=== PATIENT | male | born 1980 | race Caucasian/White ===

== ENCOUNTER 2018-09-04 15:07 | Inpatient (IN) | payer BC, OTHER ==
[~2018-09-04] VITALS: Ht 170.2 cm; Wt 92.7 kg
[2018-09-04] MEDS ORDERED: AMLO5TAB4 PO (17:23)
--- NOTE | 2018-09-04 18:06 | ERD ---
ER Documentation Chief Complaint Chief Complaint Sent by PCP for "liver condition", jaundiced, AP, guzman stool X 4 days HPI 38-year-old male referred by his primary care doctor for evaluation of jaundice. Patient was in his usual state of health until the last few months at which time he had a postprandial epigastric colicky abdominal pain. This usually came and went and did not bother him until the last 4 days which time he became jaundiced and began having guzman stool over the last 4 days as well as brownish urine. He denies fevers or chills. He has occasional nausea but no significant discomfort at this current time. He reports no weight loss. ROS All systems reviewed and are negative except as per history of present illness. Medications Home Meds Reported Medications Amlodipine Besylate* (Norvasc*) 5 Mg Tablet, 5 MG PO DAILY, TAB 09/04/18 Allergies Allergies: Coded Allergies: No Known Allergy (Unverified , 09/04/18) PMhx/Soc Hx Alcohol Use: Yes Hx Substance Use: No Hx Tobacco Use: No Smoking Status: Never smoker FmHx Noncontributory for chief complaint Physical Exam Vitals Vital Signs Date Temp Pulse Resp B/P (MAP) Pulse Ox O2 O2 Flow FiO2 Time Delivery Rate 09/04/18 97.8 97 18 176/108 97 15:16 (130) Physical Exam GENERAL: The patient is well developed and appropriate for usual state of health in no apparent distress HEENT: Pupils equal, round, and reactive to light. EOMI. There is no scleral icterus. NECK: C-spine is soft and supple, there is no meningismus. There is no cervical lymphadenopathy. LUNGS: Clear to auscultation bilaterally. There are no rales, wheezes or rhonchi. HEART: Regular rate and rhythm, no murmurs, clicks, rubs or gallops. ABDOMEN: Soft, non-tender, non-distended. There are bowel sounds in all four quadrants. No rebound or guarding. No Arnold sign at this time, no palpable mass EXTREMITIES: There is no peripheral cyanosis or edema. No focal swelling or erythema. NEURO: The patient moves all four extremities with 5/5 strength. Cranial nerves II - XII are intact. Normal gait. Alert and oriented SKIN: There is no apparent rash or petechiae. HEME/LYMPHATIC: There is no evidence of excessive bruising or lymphedema. PSYCHIATRIC: The patient does not appear anxious or depressed. Result Diagram: 09/04/18 1705 09/04/18 1705 Results 24 hrs Laboratory Tests Test 09/04/18 17:05 White Blood Count 5.2 10^3/ul Red Blood Count 5.38 10^6/ul Hemoglobin 14.5 g/dl Hematocrit 44.9 % Mean Corpuscular Volume 83.5 fl Mean Corpuscular Hemoglobin 27.0 pg Mean Corpuscular Hemoglobin Concent 32.3 g/dl Red Cell Distribution Width 13.7 % Platelet Count 265 10^3/UL Mean Platelet Volume 9.6 fl Immature Granulocytes % 0.400 % Neutrophils % 59.5 % Lymphocytes % 26.7 % Monocytes % 9.7 % Eosinophils % 2.5 % Basophils % 1.2 % Nucleated Red Blood Cells % 0.0 /100WBC Immature Granulocytes # 0.020 10^3/ul Neutrophils # 3.1 10^3/ul Lymphocytes # 1.4 10^3/ul Monocytes # 0.5 10^3/ul Eosinophils # 0.1 10^3/ul Basophils # 0.1 10^3/ul Nucleated Red Blood Cells # 0.0 10^3/ul Prothrombin Time 12.9 Sec Prothrombin Time Ratio 1.0 INR International Normalized Ratio 0.96 Urine Color AR Urine Clarity CLEAR Urine pH 6.0 Urine Specific [place] 1.017 Urine Ketones NEGATIVE mg/dL Urine Nitrite NEGATIVE mg/dL Urine Bilirubin 2+ mg/dL Urine Urobilinogen 2+ mg/dL Urine Leukocyte Esterase NEGATIVE Eduar/ul Urine Microscopic RBC 0 /HPF Urine Microscopic WBC 1 /HPF Urine Hemoglobin 1+ mg/dL Urine Glucose NEGATIVE mg/dL Urine Total Protein NEGATIVE mg/dl Sodium Level 140 mmol/L Potassium Level 4.0 mmol/L Chloride Level 102 mmol/L Carbon Dioxide Level 28 mmol/L Anion Gap 10 Blood Urea Nitrogen 14 mg/dl Creatinine 1.03 mg/dl Est Glomerular Filtrat Rate mL/min > 60 mL/min Glucose Level 107 mg/dl Calcium Level 9.7 mg/dl Total Bilirubin 8.0 mg/dl Direct Bilirubin 4.20 mg/dl Indirect Bilirubin 3.8 mg/dl Aspartate Amino Transf (AST/SGOT) 231 IU/L Alanine Aminotransferase (ALT/SGPT) 464 IU/L Alkaline Phosphatase 305 IU/L Total Protein 8.9 g/dl Albumin 5.0 g/dl Globulin 3.90 g/dl Albumin/Globulin Ratio 1.28 Lipase 65 U/L Procedures/MDM Patient was taken to a room, seen and evaluated. Comfort measures were initiated. Diagnostic tests were ordered and reviewed. RADIOLOGY: Reviewed with the radiologist CONSULTATION: Hospitalist was notified for admission GI and general surgery consultation was requested REEVALUATION: 1800: Diagnostic tests were appreciated and discussed with the patient and he remained comfortable. MEDICAL DECISION MAKIN-year-old male presents the emergency department with intermittent epigastric abdominal pain and what appears to be biliary obstruction. Initial diagnostic tests demonstrate evidence of choledocholithi asis with no obvious cholangitis. Patient has a CT scan with IV contrast ordered to further evaluate the abdomen, but his gallstones seem to be the apparent cause of this issue. Patient will be admitted to the hospital for consideration of ERCP, cholecystectomy further testing and treatment as nec essary. Departure Diagnosis: Primary Impression: Choledocholithiasis Condition: MICHELLE Mo Sep 04, 2018 18:05
--- NOTE | 2018-09-04 19:10 | HP ---
Date/Time of Note Date/Time of Note DATE: 09/04/18 TIME: 19:01 Assessment/Plan VTE Prophylaxis Pharmacological prophylaxis: NA/contraindicated Pharm contraindication: low risk/ambulating Lines/Catheters IV Catheter Type (from Nrs): Saline Lock Assessment/Plan Hospital Course 1. Abdominal pain with jaundice Abdominal ultrasound shows no evidence of choledocholithiasis, cholelithiasis is noted Follow-up on MRCP Surgery and GI consultations obtained in the ER Check hepatitis panel, H[place]IGH, anti-smooth and antimitochondrial antibodies, CA-19-9 and AFP 2. Hypertension Continue home Norvasc Prophylaxis: Ambulation Result Diagram: 09/04/18 1705 09/04/18 1705 Results 24hrs Laboratory Tests Test 09/04/18 17:05 White Blood Count 5.2 Red Blood Count 5.38 Hemoglobin 14.5 Hematocrit 44.9 Mean Corpuscular Volume 83.5 Mean Corpuscular Hemoglobin 27.0 L Mean Corpuscular Hemoglobin Concent 32.3 Red Cell Distribution Width 13.7 Platelet Count 265 Mean Platelet Volume 9.6 Immature Granulocytes % 0.400 Neutrophils % 59.5 Lymphocytes % 26.7 Monocytes % 9.7 Eosinophils % 2.5 Basophils % 1.2 Nucleated Red Blood Cells % 0.0 Immature Granulocytes # 0.020 Neutrophils # 3.1 Lymphocytes # 1.4 Monocytes # 0.5 Eosinophils # 0.1 Basophils # 0.1 Nucleated Red Blood Cells # 0.0 Prothrombin Time 12.9 Prothrombin Time Ratio 1.0 INR International Normalized Ratio 0.96 Urine Color AR Urine Clarity CLEAR Urine pH 6.0 Urine Specific [place] 1.017 Urine Ketones NEGATIVE Urine Nitrite NEGATIVE Urine Bilirubin 2+ H Urine Urobilinogen 2+ H Urine Leukocyte Esterase NEGATIVE Urine Microscopic RBC 0 Urine Microscopic WBC 1 Urine Hemoglobin 1+ H Urine Glucose NEGATIVE Urine Total Protein NEGATIVE Sodium Level 140 Potassium Level 4.0 Chloride Level 102 Carbon Dioxide Level 28 Anion Gap 10 Blood Urea Nitrogen 14 Creatinine 1.03 Est Glomerular Filtrat Rate mL/min > 60 Glucose Level 107 Calcium Level 9.7 Total Bilirubin 8.0 H Direct Bilirubin 4.20 H Indirect Bilirubin 3.8 H Aspartate Amino Transf (AST/SGOT) 231 H Alanine Aminotransferase (ALT/SGPT) 464 H Alkaline Phosphatase 305 H Total Protein 8.9 H Albumin 5.0 H Globulin 3.90 H Albumin/Globulin Ratio 1.28 Lipase 65 HPI/ROS Admit Date/Time Admit Date/Time September 04, 2018 Hx of Present Illness Patient is a 38-year-old male with a history of hypertension and hemorrhoids, patient presents with 6 months of intermittent nausea and vomiting with worsening of his nausea and vomiting over the past several weeks in addition to midepigastric and left mid quadrant abdominal pain with jaundice and darkening of the urine and decreased coloration of the stool. Patient saw his PCP today who noticed his jaundice and scleral icterus and sent him to the ER. In the ER LFTs including bilirubin are elevated, abdominal ultrasound shows cholelithiasis with a normal CBD, CT abdomen showed Hepatic steatosis with a benign appearing inferior right hepatic lobe lesion most likely an hemangioma. Patient has no other complaints at this time. ROS Constitutional: no complaints, improved Eyes: no complaints ENT: no complaints Respiratory: no complaints Cardiovascular: no complaints Gastrointestinal: pain Genitourinary: no complaints Musculoskeletal: no complaints Skin: other (Jaundice) Neurologic: no complaints Endocrine: no complaints Lymphatic: no complaints Psychological: no complaints, nl mood/affect Immunologic: no complaints PMH/Family/Social Past Medical History Hypertension hemorrhoids Coded Allergies: No Known Allergy (Unverified , 09/04/18) Past Surgical History Surgery for hemorrhoids Family History Significant Family History: no pertinent family hx Social History Alcohol Use: occasionally Smoking Status: Former smoker Drug Use: none Exam/Review of Systems Vital Signs Vitals Vital Signs Date Temp Pulse Resp B/P (MAP) Pulse Ox O2 O2 Flow FiO2 Time Delivery Rate 09/04/18 97.8 97 18 176/108 97 15:16 (130) Exam Constitutional: alert, oriented Eyes: No nl sclera Respiratory: clear to auscultation Cardiovascular: regular rate and rhythm Gastrointestinal: soft, non-tender; No distended Musculoskeletal: nl extremities to inspection Skin: other (Jaundice) YONNY TRAORE Sep 04, 2018 19:10
[2018-09-04] MEDS ORDERED: DOCUSATE SODIUM 100 MG CAP PO PRN (19:30)
[2018-09-04] MEDS ORDERED: ONDANSETRON 4 MG INJ IV PRN (19:30)
[2018-09-04] MEDS ORDERED: morphine 2 MG INJ IV PRN (19:30)
[2018-09-04] MEDS ORDERED: ZOLPIDEM 5 MG TAB PO PRN (19:30)
[2018-09-04] MEDS ORDERED: HYDROCODONE/APAP (5/325) TAB PO PRN (19:30)
[2018-09-04] MEDS ORDERED: NACL 0.9% 3 ML SYG IV SCH (19:30)
[2018-09-04] MEDS ORDERED: ACETAMINOPHEN 325 MG TAB PO PRN (19:30)
[2018-09-04 21:00] VITALS: BP 142/82; PULSE 68; RESP 18
[2018-09-04 22:11] VITALS: Ht 170.2 cm; Wt 92.7 kg
[2018-09-05] VITALS (18 sets, daily range): BP systolic 130–174; BP diastolic 75–104; PULSE 64–92; RESP 11–99
--- NOTE | 2018-09-05 00:44 | CONS ---
Date/Time of Note Date/Time of Note DATE: 09/05/18 TIME: 00:44 Assessment/Plan Assessment/Plan Assessment/Plan Az with a 6-month history of intermittent abdominal pain, fatty food intolerance and 2-day history of increasing jaundice darkening of urine and lightening of stool. Findings on evaluation consistent with common bile duct obstruction either transient or acute with elevated LFTs bilirubin of 8 normal white blood cell count. There is also incidental finding of mass in which consistent with hemangioma in the liver but this does not appear to be involving or causing the above symptoms. Patient had MRCP though findings are results are not yet known. I discussed with the patient the natural history and evolution and findings consistent with likely common bile duct stone though there is no evidence of dilatation. If the MRCP is normal and LFTs improved we may assume that he has passed a stone which case he will simply require laparoscopic cholecystectomy. If there is any suggestion of common duct debris or stone then he will need to undergo ERCP by GI either in concert with laparoscopic cholecystectomy or prior to. Patient understands that we will keep him n.p.o. tonight and he understands and agrees with the plan course of treatment. Thank you Result Diagram: 09/04/18 1705 09/04/18 1705 Results 24hrs Laboratory Tests Test 09/04/18 17:05 09/04/18 17:07 White Blood Count 5.2 Red Blood Count 5.38 Hemoglobin 14.5 Hematocrit 44.9 Mean Corpuscular Volume 83.5 Mean Corpuscular Hemoglobin 27.0 L Mean Corpuscular Hemoglobin Concent 32.3 Red Cell Distribution Width 13.7 Platelet Count 265 Mean Platelet Volume 9.6 Immature Granulocytes % 0.400 Neutrophils % 59.5 Lymphocytes % 26.7 Monocytes % 9.7 Eosinophils % 2.5 Basophils % 1.2 Nucleated Red Blood Cells % 0.0 Immature Granulocytes # 0.020 Neutrophils # 3.1 Lymphocytes # 1.4 Monocytes # 0.5 Eosinophils # 0.1 Basophils # 0.1 Nucleated Red Blood Cells # 0.0 Prothrombin Time 12.9 Prothrombin Time Ratio 1.0 INR International Normalized Ratio 0.96 Urine Color AR Urine Clarity CLEAR Urine pH 6.0 Urine Specific [place] 1.017 Urine Ketones NEGATIVE Urine Nitrite NEGATIVE Urine Bilirubin 2+ H Urine Urobilinogen 2+ H Urine Leukocyte Esterase NEGATIVE Urine Microscopic RBC 0 Urine Microscopic WBC 1 Urine Hemoglobin 1+ H Urine Glucose NEGATIVE Urine Total Protein NEGATIVE Sodium Level 140 Potassium Level 4.0 Chloride Level 102 Carbon Dioxide Level 28 Anion Gap 10 Blood Urea Nitrogen 14 Creatinine 1.03 Est Glomerular Filtrat Rate mL/min > 60 Glucose Level 107 Calcium Level 9.7 Total Bilirubin 8.0 H Direct Bilirubin 4.20 H Indirect Bilirubin 3.8 H Aspartate Amino Transf (AST/SGOT) 231 H Alanine Aminotransferase (ALT/SGPT) 464 H Alkaline Phosphatase 305 H Total Protein 8.9 H Albumin 5.0 H Globulin 3.90 H Albumin/Globulin Ratio 1.28 Lipase 65 Alpha Fetoprotein 1.76 CA 19-9 Antigen 107.0 H Hepatitis B Surface Antigen NEGATIVE Hepatitis B Core Total Antibody NEGATIVE Hepatitis C Antibody NEGATIVE Consultation Date/Type/Reason Admit Date/Time September 04, 2018 Date of Consultation: Sep 04, 2018 Type of Consult Surgical consultation Reason for Consultation Jaundice, cholelithiasis, abdominal pain Requesting Provider: YONNY TRAORE Hx of Present Illness Patient pleasant 38-year-old male who presented to the emergency room after being referred by his primary care physician who saw him earlier today noting the patient was jaundiced and complaining of severe abdominal pain for the past couple of days. Patient gives a history of starting about 6 months ago where he had intermittent fatty food intolerance epigastric pain which resolved spontaneously after a day or 2. At that time he thought that it was secondary to something he ate such as pizza or other foods he had another episode about a month ago after drinking some wine and he thought that maybe that was the trigger. The past few days patient noticed some pain after having hamburger and fries on . He also noted that his stool was raúl colored and urine much darker than normal. He presented to his primary care physician Dr. Samson and was referred directly to the emergency room because of noting him to be icteric and suspicion for jaundice etiology not clear. On presentation to the emergency room evaluation with ultrasound and CAT scan and labs revealed a markedly elevated bilirubin with a total bilirubin of 8 marked elevation of LFTs 250-400 range normal lipase normal amylase. On CAT scan there was no evidence of dilated common bile duct or stones however on ultrasound there are multiple gallstones noted though the common bile duct was also noted to be normal. There was a mass consistent with hemangioma in the liver but this did not appear to be causing any intra-and hepatic or extrahepatic duct dilatation. Past Medical History Medications Current Medications IV Flush (NS 3 ml) 3 ml PER PROTOCOL IV ; Start 09/04/18 at 19:30 Ondansetron HCl (Zofran Inj) 4 mg Q6H PRN IV NAUSEA AND/OR VOMITING; Start 09/04/18 at 19:30 Acetaminophen (Tylenol Tab) 650 mg Q6H PRN PO PAIN LEVEL 1-3 OR FEVER; Start 09/04/18 at 19:30 Acetaminophen/ Hydrocodone Bitart ([place] (5/325)) 1 tab Q6H PRN PO MODERATE PAIN LEVEL 4-6; Start 09/04/18 at 19:30 Morphine Sulfate (morphine) 2 mg Q4H PRN IV SEVERE PAIN LEVEL 7-10; Start 09/04/18 at 19:30 Docusate Sodium (Colace) 100 mg Q12H PRN PO CONSTIPATION; Start 09/04/18 at 19:30 Zolpidem Tartrate (Ambien) 5 mg QHS PRN PO SLEEP; Start 09/04/18 at 19:30 Amlodipine Besylate (Norvasc) 5 mg DAILY PO ; Start 09/05/18 at 09:00 Allergies: Coded Allergies: No Known Allergy (Unverified , 09/04/18) Family History Significant Family History: diabetes Social History Alcohol Use: occasionally Smoking Status: Former smoker Drug Use: none Exam/Review of Systems Vital Signs Vitals Vital Signs Date Temp Pulse Resp B/P (MAP) Pulse Ox O2 O2 Flow FiO2 Time Delivery Rate 09/04/18 98.7 68 18 142/82 95 Room Air 21:00 (102) Exam Gastrointestinal: soft, nl liver, spleen, non-tender, ascites, bowel sounds, distended, firm, hepatomegaly, mass, rebound or guarding, splenomegaly, surgical scars, tender (Mild epigastric tenderness), other Medications Medications Current Medications IV Flush (NS 3 ml) 3 ml PER PROTOCOL IV ; Start 09/04/18 at 19:30 Ondansetron HCl (Zofran Inj) 4 mg Q6H PRN IV NAUSEA AND/OR VOMITING; Start 09/04/18 at 19:30 Acetaminophen (Tylenol Tab) 650 mg Q6H PRN PO PAIN LEVEL 1-3 OR FEVER; Start 09/04/18 at 19:30 Acetaminophen/ Hydrocodone Bitart ([place] (5/325)) 1 tab Q6H PRN PO MODERATE PAIN LEVEL 4-6; Start 09/04/18 at 19:30 Morphine Sulfate (morphine) 2 mg Q4H PRN IV SEVERE PAIN LEVEL 7-10; Start 09/04/18 at 19:30 Docusate Sodium (Colace) 100 mg Q12H PRN PO CONSTIPATION; Start 09/04/18 at 19:30 Zolpidem Tartrate (Ambien) 5 mg QHS PRN PO SLEEP; Start 09/04/18 at 19:30 Amlodipine Besylate (Norvasc) 5 mg DAILY PO ; Start 09/05/18 at 09:00 LEI BEATTY MD Sep 05, 2018 00:44
[2018-09-05] MEDS: DEXTROSE 5%-0.45% NACL 1,000 ML IV SCH ×3 (01:43→21:30)
--- NOTE | 2018-09-05 05:49 | NUR ---
END OF SHIFT NOTE: PATIENT IS A AND O X 4; NOT IN DISTRESS. VS IS WNL; ALL MEDICATIONS HAVE BEEN GIVEN ORDERED AND PRN; ALL NEEDS ATTENDED; CALL LIGHT WITHIN REACH ; WILL ENDORSE TO THE DAY SHIFT RN
[2018-09-05] MEDS ORDERED: SEVOFLURANE 15 MIN ONE (07:00)
[2018-09-05] MEDS: AMLODIPINE 5 MG TAB PO SCH (08:50)
[2018-09-05] MEDS ORDERED: morphine LIQ (10 MG/5 ML) CUP PO PRN (14:30)
--- NOTE | 2018-09-05 15:21 | PN ---
Date/Time of Note Date/Time of Note DATE: 09/05/18 TIME: 15:19 Assessment/Plan VTE Prophylaxis Risk score (from Nsg)>0 risk: 1 Pharmacological prophylaxis: NA/contraindicated Pharm contraindication: low risk/ambulating Lines/Catheters IV Catheter Type (from Nrsg): Peripheral IV Urinary Cath still in place: No Assessment/Plan Hospital Course 1. Abdominal pain with jaundice Abdominal ultrasound shows no evidence of choledocholithiasis, cholelithiasis is noted MRCP shows no choledocholithiasis, cholelithiasis is noted Surgery and GI consultations obtained Hepatitis panel is negative HALEIGH, anti-smooth and antimitochondrial antibodies are pending CA-19-9 is elevated but is likely a false positive, no pancreatic masses noted on MRI, AFP is normal 2. Hypertension Continue home Norvasc Prophylaxis: Ambulation Result Diagram: 09/05/1843909/05/18439 Results 24hrs Laboratory Tests Test 09/04/18 17:05 09/04/18 17:07 09/05/18 04:40 White Blood Count 5.2 5.2 Red Blood Count 5.38 4.98 Hemoglobin 14.5 13.8 L Hematocrit 44.9 41.0 L Mean Corpuscular Volume 83.5 82.3 Mean Corpuscular Hemoglobin 27.0 L 27.7 L Mean Corpuscular Hemoglobin Concent 32.3 33.7 Red Cell Distribution Width 13.7 13.8 Platelet Count 265 253 Mean Platelet Volume 9.6 9.9 Immature Granulocytes % 0.400 0.600 H Neutrophils % 59.5 55.1 Lymphocytes % 26.7 28.5 Monocytes % 9.7 10.9 Eosinophils % 2.5 3.6 Basophils % 1.2 1.3 Nucleated Red Blood Cells % 0.0 0.0 Immature Granulocytes # 0.020 0.030 Neutrophils # 3.1 2.9 Lymphocytes # 1.4 1.5 Monocytes # 0.5 0.6 Eosinophils # 0.1 0.2 Basophils # 0.1 0.1 Nucleated Red Blood Cells # 0.0 0.0 Prothrombin Time 12.9 Prothrombin Time Ratio 1.0 INR International Normalized Ratio 0.96 Urine Color AR Urine Clarity CLEAR Urine pH 6.0 Urine Specific [place] 1.017 Urine Ketones NEGATIVE Urine Nitrite NEGATIVE Urine Bilirubin 2+ H Urine Urobilinogen 2+ H Urine Leukocyte Esterase NEGATIVE Urine Microscopic RBC 0 Urine Microscopic WBC 1 Urine Hemoglobin 1+ H Urine Glucose NEGATIVE Urine Total Protein NEGATIVE Sodium Level 140 142 Potassium Level 4.0 3.9 Chloride Level 102 104 Carbon Dioxide Level 28 28 Anion Gap 10 10 Blood Urea Nitrogen 14 12 Creatinine 1.03 1.08 Est Glomerular Filtrat Rate mL/min > 60 > 60 Glucose Level 107 110 Calcium Level 9.7 9.3 Total Bilirubin 8.0 H 7.1 H Direct Bilirubin 4.20 H 3.50 H Indirect Bilirubin 3.8 H 3.6 H Aspartate Amino Transf (AST/SGOT) 231 H 213 H Alanine Aminotransferase (ALT/SGPT) 464 H 416 H Alkaline Phosphatase 305 H 253 H Total Protein 8.9 H 7.9 # Albumin 5.0 H 4.4 Globulin 3.90 H 3.50 H Albumin/Globulin Ratio 1.28 1.25 Lipase 65 Alpha Fetoprotein 1.76 CA 19-9 Antigen 107.0 H Hepatitis B Surface Antigen NEGATIVE Hepatitis B Core Total Antibody NEGATIVE Hepatitis C Antibody NEGATIVE Hemoglobin A1c 5.3 Phosphorus Level 4.6 Magnesium Level 2.4 Triglycerides Level 144 Cholesterol Level 203 H LDL Cholesterol, Calculated 125 HDL Cholesterol 49 Cholesterol/HDL Ratio 4.1 Subjective 24 Hr Interval Summary Constitutional: no complaints Exam/Review of Systems Vital Signs Vitals Vital Signs Date Temp Pulse Resp B/P (MAP) Pulse Ox O2 O2 Flow FiO2 Time Delivery Rate 09/05/18 98.8 89 18 145/87 95 07:46 (106) 09/05/18 Room Air 02:00 Intake and Output 09/04/18 09/04/18 09/05/18 1515:00 23:00 07:00 IntakeIntake Total 330 ml OutputOutput Total 350 ml BalanceBalance -20 ml Exam Constitutional: alert, oriented Respiratory: clear to auscultation Cardiovascular: regular rate and rhythm Gastrointestinal: soft; No distended Musculoskeletal: nl extremities to inspection Medications Medications Current Medications IV Flush (NS 3 ml) 3 ml PER PROTOCOL IV ; Start 09/04/18 at 19:30 Ondansetron HCl (Zofran Inj) 4 mg Q6H PRN IV NAUSEA AND/OR VOMITING; Start 09/04 at 19:30 Acetaminophen (Tylenol Tab) 650 mg Q6H PRN PO PAIN LEVEL 1-3 OR FEVER; Start 09/04/18 at 19:30 Acetaminophen/ Hydrocodone Bitart ([place] (5/325)) 1 tab Q6H PRN PO MODERATE PAIN LEVEL 4-6; Start 09/04/18 at 19:30 Docusate Sodium (Colace) 100 mg Q12H PRN PO CONSTIPATION; Start 09/04/18 at 19:30 Zolpidem Tartrate (Ambien) 5 mg QHS PRN PO SLEEP; Start 09/04/18 at 19:30 Amlodipine Besylate (Norvasc) 5 mg DAILY PO Last administered on 09/05/18at 08:50; Admin Dose 5 MG; Start 09/05/18 at 09:00 Dextrose/Sodium Chloride 1,000 ml @ 100 mls/hr Q10H IV Last administered on 09/05/18at 11:21; Admin Dose 100 MLS/HR; Start 09/05/18 at 01:30 Morphine Sulfate (morphine) 6 mg Q4H PRN PO SEVERE PAIN LEVEL 7-10; Start 09/05/18 at 14:30 YONNY TRAORE Sep 05, 2018 15:21
--- NOTE | 2018-09-05 16:00 | NUR ---
RN NOTE: PATIENT STABLE,NO C/O PAIN AT THIS TIME,SEEN BY DR. GHOSH AND SCHEDULED FOR ERCP, PATIENT TRANSFERRED VIA GURNEY TO OR FOR PROCEDURE. FAMILY AT THE SITE.
[2018-09-05] MEDS ORDERED: IOHEXOL 300MG/ML 30 ML BTL ONE (16:10)
--- NOTE | 2018-09-05 16:32 | PREAC ---
Date/Time of Note Date/Time of Note DATE: 09/05/18 TIME: 16:30 Anesthesia Eval and Record Evaluation Time Pre-Procedure Interview DATE: 09/05/18 TIME: 16:30 Age 38 Sex male NPO: 8 hrs Preoperative diagnosis Choledocholithasis Planned procedure ERCP Past Medical History Past Medical History: Includes Cardio: HTN, Dyslipidemia GI: Morbid obesity Surgery & Anesthesia Issues No known issue Meds Anticoagulation: No Beta Saleem within 24 hr: No Reason Beta Saleem not given: Pt. not on B-Saleem Reported Medications Amlodipine Besylate* (Norvasc*) 5 Mg Tablet, 5 MG PO DAILY, TAB 09/04/18 Current Medications IV Flush (NS 3 ml) 3 ml PER PROTOCOL IV ; Start 09/04/18 at 19:30 Ondansetron HCl (Zofran Inj) 4 mg Q6H PRN IV NAUSEA AND/OR VOMITING; Start 09/04/18 at 19:30 Acetaminophen (Tylenol Tab) 650 mg Q6H PRN PO PAIN LEVEL 1-3 OR FEVER; Start 09/04/18 at 19:30 Acetaminophen/ Hydrocodone Bitart ([place] (5/325)) 1 tab Q6H PRN PO MODERATE PAIN LEVEL 4-6; Start 09/04/18 at 19:30 Docusate Sodium (Colace) 100 mg Q12H PRN PO CONSTIPATION; Start 09/04/18 at 19:30 Zolpidem Tartrate (Ambien) 5 mg QHS PRN PO SLEEP; Start 09/04/18 at 19:30 Amlodipine Besylate (Norvasc) 5 mg DAILY PO Last administered on 09/05/18at 08:50; Admin Dose 5 MG; Start 09/05/18 at 09:00 Dextrose/Sodium Chloride 1,000 ml @ 100 mls/hr Q10H IV Last administered on 09/05/18at 11:21; Admin Dose 100 MLS/HR; Start 09/05/18 at 01:30 Morphine Sulfate (morphine) 6 mg Q4H PRN PO SEVERE PAIN LEVEL 7-10; Start 09/05/18 at 14:30 Meds reviewed: Yes Allergies Coded Allergies: No Known Allergy (Unverified , 09/04/18) Allergies Reviewed: Yes Labs/Studies Labs Reviewed: Reviewed by anesthesiologist Result Diagram: 09/05/18 0440 09/05/18 0440 Laboratory Tests 09/05/18 04:40 test: N/A Studies: ECG Pre-procedure Exam Last vitals Vital Signs Date Temp Pulse Resp B/P (MAP) Pulse Ox O2 O2 Flow FiO2 Time Delivery Rate 09/05/18 98.8 89 18 145/87 95 07:46 (106) 09/05/18 Room Air 02:00 Airway: Adequate mouth opening, Adequate thyromental dist Mallampati: Mallampati II Teeth: Normal Lung: Normal Heart: Normal ASA Physical Status ASA physical status: 3 Emergency: None Planned Anesthetic General/MAC: ETT Planned Pain Management Parenteral pain med Pre-operative Attestations Prior to commencing anesthesia and surgery, the patient was re-evaluated, there was verification of: *The patient's identity *The results of appropriate recent lab work and preoperative vital signs *The above evaluation not changing prior to induction *Anesthetic plan, risk benefits, alternative and complications discussed with patient/family; questions answered; patient/family understands, accepts and wishes to proceed. TOM SALDANA MD Sep 05, 2018 16:31
[2018-09-05] MEDS ORDERED: INDOMETHACIN 50 MG SUPP PR ONE (16:36)
[2018-09-05] MEDS ORDERED: FENTAnyl 50 MCG/ML VIAL ONE (16:38)
[2018-09-05] MEDS ORDERED: MIDAZOLAM 1 MG/ML 2 ML INJ ONE (16:38)
[2018-09-05] MEDS ORDERED: PROPOFOL 20 ML ONE (17:30)
[2018-09-05] MEDS ORDERED: LIDOCAINE 2% (SDV) 5 ML INJ ONE (17:30)
[2018-09-05] MEDS ORDERED: GLYCOPYRROLATE 0.4 MG INJ ONE (17:30)
[2018-09-05] MEDS ORDERED: NEOSTIGMINE 3 MG/3 ML SYRINGE ONE (17:31)
[2018-09-05] MEDS ORDERED: CEFAZOLIN 1 GM INJ ONE (17:31)
[2018-09-05] MEDS ORDERED: ONDANSETRON 4 MG INJ ONE (17:32)
--- NOTE | 2018-09-05 17:38 | CONS ---
DATE OF ADMISSION: 09/04/2018 DATE OF CONSULTATION: TYPE OF CONSULTATION: Gastroenterology. Dear Dr. Stevenson: Thank you for asking me to see Mr. Tucker in GI consultation. 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 He says he has occasional ep igastric pain and he has no appetite for the past 3 to 4 days. He lost 2 to 3 pounds. The stool is light colored. No history of itching. No history of significant abdominal pain. Occasionally, he m ay have discomfort in the upper abdomen. No diarrhea. No constipation. No GI bleeding. SOCIAL HISTORY: The patient does not smoke. He used to drink before, not anymore. He used to have 2 or 3 drinks a week, not anymore. No history of viral hepatitis. No history of prior liver disease. No blood transfusion. PAST MEDICAL HISTORY: History of hypertension. REVIEW OF SYSTEMS: Essentially as mentioned above. MEDICATIONS: Currently in the hospital include: 1. Morphine. 2. Norvasc. 3. Zofran. 4. Tylenol. 5. [place]. 6. Ambien. FAMILY HISTORY: Unremarkable from the GI standpoint. PHYSICAL EXAMINATION: GENERAL: The patient is a 38-year-old gentleman who at this time is alert, is well built. VITAL SIGNS: Temperature 98.8, pulse is 89, blood pressure is 145/87. CARDIOVASCULAR: Normal heart sounds. RESPIRATORY: Normal breath sounds. ABDOMEN: Showed unremarkable findings. SKIN: Eyes indicate jaundice. LABORATORY WORKUP: Bilirubin total is 8.0, direct is 4.2 yesterday, AST 231, ALT 464, alkaline phosp hatase 305. Bilirubin went down to 7.1 today. Rest of the enzymes is about the same. Alpha fetopro tein normal is 1.76. CA 19-9 is 107, which is elevated, normal is up to 37. Prothrombin time is nor mal. DIAGNOSTIC DATA: Ultrasound of the gallbladder showed cholelithiasis without any inflammatory change s. Common bile duct is normal. The CAT scan of the abdomen shows evidence of gallstones. There is no cholecystitis picture. Hepatic steatosis is noted. There is a benign appearing inferior right he patic lobe lesion suggestive of hemangioma. MRI of the abdomen shows tiny gallstones without any evidence of choledocholithiasis. Low cystic malcolm t is noted and hepatic steatosis with 2 right hepatic lesions which cannot be further characterized. Colonic interposition noted. CLINICAL IMPRESSION: The patient is presenting with history of jaundice, almost is asymptomatic. He has got pale colored stool. He has no appetite. He lost weight 2 to 3 pounds. His hepatitis panel is negative, which is hepatitis B surface antigen, hepatitis B core antibody, hepatitis C antibody, they are all negative. There is a good possibility that there may be small stone in the distal commo n bile duct, but because of the fact he has no appetite and he lost weight, one should rule out the n eoplastic process. He does have elevation of the CA 19-9 which is 107, is 37. In aspect of cholangiocarcinoma, pancreatic carcinoma should be considered. PLAN: I would recommend at this time, ERCP and if the ERCP is unremarkable, then we will do a liver biopsy and other workup for the liver disease. Once again, Dr. Stevenson, thank you for this consultation. Dictated By: GIANNI WILLETT/NTS Conf#: [id number] DID#: [id number] CC: YONNY STEVENSON MD;*EndCC*
--- NOTE | 2018-09-05 17:46 | PAC ---
Date/Time of Note Date/Time of Note DATE: 09/05/18 TIME: 17:45 Post-Anesthesia Notes Post-Anesthesia Note Last documented vital signs Vital Signs Date Temp Pulse Resp B/P (MAP) Pulse Ox O2 O2 Flow FiO2 Time Delivery Rate 09/05/18 98.8 89 18 145/87 95 07:46 (106) 09/05/18 Room Air 02:00 Activity: WNL Respiratory function: WNL Cardiovascular function: WNL Mental status: Baseline Pain reasonably controlled: Yes Hydration appropriate: Yes Nausea/Vomiting absent: Yes Comments BP:138/68, pulse:78, spo2:100%. T:98,6 TOM SALDANA MD Sep 05, 2018 17:46
--- NOTE | 2018-09-05 17:48 | OPR ---
Date/Time of Note Date/Time of Note DATE: 09/05/18 TIME: 17:44 Operative Report Preoperative Diagnosis cbd stone/ Postoperative Diagnosis cbd stones Operation/Procedure Performed ercp Surgeon see signature line Hat And Cap Sewer none Anesthesia Type: general Anesthesiologist: TOM SALDANA MD Estimated Blood Loss: none Transfusion none Specimen ampullary bx Grafts/Implants none Complications none Pt Condition Post Procedure: stable Indications obstructive jaundice Procedure Description ercp done sphincterotomy performed cbd stone removed cbd stent placed ampullary bx done 1 in 10 000epinephrine injected at sphincterotomy site GIANNI GHOSH MD Sep 05, 2018 17:48
[2018-09-05] MEDS ORDERED: ONDANSETRON 4 MG INJ IV PRN (18:00)
[2018-09-05] MEDS ORDERED: METOCLOPRAMIDE 10 MG INJ IV PRN (18:00)
[2018-09-05] MEDS ORDERED: MEPERIDINE 25 MG INJ IV PRN (18:00)
[2018-09-05] MEDS ORDERED: LABETALOL HCL 20MG INJ IV PRN (18:00)
[2018-09-05] MEDS ORDERED: FENTAnyl 50 MCG/ML VIAL IV PRN (18:00)
[2018-09-05] MEDS ORDERED: DIPHENHYDRAMINE 50 MG INJ IV PRN (18:00)
[2018-09-05] MEDS ORDERED: hydrALAzine 20 MG INJ IV PRN (18:00)
[2018-09-05] MEDS ORDERED: HYDROmorphONE 1 MG/5 ML IV SYRINGE IV PRN ×2 (18:00)
--- NOTE | 2018-09-05 19:28 | NUR ---
Patient came from ERCP, ambulatory, alert, oriented, no c/o pain, has normal VS.
[2018-09-06 00:32] VITALS: BP 128/78; PULSE 74; RESP 20
--- NOTE | 2018-09-06 01:41 | GILP ---
DATE OF PROCEDURE: NAME OF PROCEDURE: ERCP, sphincterotomy, CBD stone removal, ampullary biopsy and epinephrine injecti on. PREOPERATIVE DIAGNOSIS: The patient presenting with jaundice up to . ERCP, CAT scan and MRCP d id not show evidence of biliary dilatation, no common bile duct stones. POSTOPERATIVE DIAGNOSES: Showed evidence of filling defect in the distal bile duct with minimal dist al biliary dilatation. The common bile duct stone was removed after sphincterotomy. See the description below. DESCRIPTION OF PROCEDURE: After written informed consent was obtained, the patient was intubated by anesthesiologist, Dr. Brown. When the patient was prone position, Olympus video side-viewing duoden oscope was inserted into the oropharynx, then into the esophagus, subsequently into the stomach and t hen into the duodenum. The ampulla was located in normal location with normal morphology. At this t veronique, the Dreamtome was inserted into the common bile duct. Cannulation of the common bile duct was p erformed. There is a filling defect noted in the distal common bile duct measuring about 5 to 6 mm i n diameter. At this time, by using the cutting wire of the Dreamtome, sphincterotomy was performed a nd about 1 cm cut was made of the sphincter. Following this, the Dreamtome was removed. Over the gu idewire, a 9 x 12 stone extraction balloon was inserted into the common hepatic duct and multiple sma ll stones were removed and 1 large stone estimated at 6 mm in diameter was removed. At this time by using the pediatric biopsy forceps, biopsy of the ampulla was performed because there is some nodular ity noted at the ampulla at the area of the sphincterotomy site. Following this, biopsy 10 x 7 Am[place] rdam type of endobiliary prosthesis was inserted into the common hepatic duct across the ampulla into the duodenum. A 1:10,000 epinephrine which is a 4 mL was injected at the ampulla because there was a very negligible oozing of the blood was noted, but after injection, no more bruising noted. At thi s time, photographs were obtained on the fluoroscopy and the procedure was terminated. PLAN: I recommend to proceed with laparoscopic cholecystectomy. Dictated By: GIANNI WILLETT/LEXIE Conf#: [id number] DID#: [id number] CC: YONNY TRAORE MD;*End*
[2018-09-06] MEDS: DEXTROSE 5%-0.45% NACL 1,000 ML IV SCH ×4 (02:31→20:41)
--- NOTE | 2018-09-06 06:31 | NUR ---
Patient alert, oriented x4, slept good during the night, didn't c/o pain; VS were stable.
[2018-09-06 07:51] VITALS: BP 140/83; PULSE 94; RESP 17
[2018-09-06] MEDS: AMLODIPINE 5 MG TAB PO SCH (08:30)
--- NOTE | 2018-09-06 08:45 | NUR ---
Patient said Dr Porter told him that he is going to do surgery but then no order for surgery , patient didn't eat anything since last night and he wants me to verify to MD cause if no surgery today he wants to go home today.
--- NOTE | 2018-09-06 08:50 | NUR ---
Called Dr Porter and verified if he is going to do surgery today and he said " Yes and I put the order early today" i double checked but no order, and he wants me to put the order.
--- NOTE | 2018-09-06 09:00 | NUR ---
Dr Stevenson is here and made aware that DR Escalante said he is going to do surgery today but no order from surgeon , he verified with Dr Escalante and he will come to talk to patient to squeeze him for surgery today . Patient kept NPO. Patient updated with plans by Dr Stevenson.
--- NOTE | 2018-09-06 11:30 | PN ---
Date/Time of Note Date/Time of Note DATE: 09/06/18 TIME: 11:28 Assessment/Plan VTE Prophylaxis Risk score (from [facility] [place])>0 risk: 1 SCD applied (from Ns): Yes Pharmacological prophylaxis: NA/contraindicated Pharm contraindication: low risk/ambulating Lines/Catheters IV C[facility]ter Type (from [facility]): Peripheral IV Urinary Cath still in place: No Assessment/Plan Hospital Course 1. Abdominal pain with jaundice secondary to choledocholithiasis Abdominal ultrasound and MRCP showed no evidence of choledocholithiasis ERCP was done secondary to persistent transaminitis and CBD stone was noted and removed Plan is for cholecystectomy possibly today Surgery and GI consultations appreciated Hepatitis panel is negative, anti-mitochondrial and anti-smooth muscle antibodies are also negative CA-19-9 is elevated but is likely a false positive, no pancreatic masses noted on MRI, AFP is normal 2. Hypertension Continue home Norvasc Prophylaxis: Ambulation Result Diagram: 09/06/18 0423 09/06/18 0423 Results 24hrs Laboratory Tests Test 09/06/18 04:23 White Blood Count 7.8 # Red Blood Count 5.04 Hemoglobin 13.8 L Hematocrit 41.3 L Mean Corpuscular Volume 81.9 L Mean Corpuscular Hemoglobin 27.4 L Mean Corpuscular Hemoglobin Concent 33.4 Red Cell Distribution Width 13.9 Platelet Count 269 Mean Platelet Volume 9.7 Immature Granulocytes % 0.300 Neutrophils % 73.1 Lymphocytes % 14.5 L Monocytes % 10.5 Eosinophils % 1.0 Basophils % 0.6 Nucleated Red Blood Cells % 0.0 Immature Granulocytes # 0.020 Neutrophils # 5.7 Lymphocytes # 1.1 Monocytes # 0.8 Eosinophils # 0.1 Basophils # 0.1 Nucleated Red Blood Cells # 0.0 Sodium Level 142 Potassium Level 4.0 Chloride Level 105 Carbon Dioxide Level 28 Anion Gap 9 Blood Urea Nitrogen 10 Creatinine 1.03 Est Glomerular Filtrat Rate mL/min > 60 Glucose Level 100 Calcium Level 9.6 Total Bilirubin 4.0 #H Direct Bilirubin 0.20 # Indirect Bilirubin 3.8 H Aspartate Amino Transf (AST/SGOT) 177 H Alanine Aminotransferase (ALT/SGPT) 424 H Alkaline Phosphatase 248 H Total Protein 7.5 Albumin 4.4 Globulin 3.10 Albumin/Globulin Ratio 1.41 Subjective 24 Hr Interval Summary Constitutional: no complaints Exam/Review of Systems Vital Signs Vitals Vital Signs Date Temp Pulse Resp B/P (MAP) Pulse Ox O2 O2 Flow FiO2 Time Delivery Rate 09/06/18 99.0 94 17 140/83 96 07:51 (102) 09/06/18 Room Air 00:32 Intake and Output 09/05/18 09/05/18 09/06/18 1515:00 23:00 07:00 IntakeIntake Total 880 ml 1170 ml OutputOutput Total 450 ml 200 ml BalanceBalance 430 ml 970 ml Exam Constitutional: alert, oriented Respiratory: clear to auscultation Cardiovascular: regular rate and rhythm Gastrointestinal: soft; No distended Musculoskeletal: nl extremities to inspection Medications Medications Current Medications IV Flush (NS 3 ml) 3 ml PER PROTOCOL IV ; Start 09/04/18 at 19:30 Ondansetron HCl (Zofran Inj) 4 mg Q6H PRN IV NAUSEA AND/OR VOMITING; Start 09/04/18 at 19:30 Acetaminophen (Tylenol Tab) 650 mg Q6H PRN PO PAIN LEVEL 1-3 OR FEVER Last administered on 09/06/18at 06:43; Admin Dose 650 MG; Start 09/04/18 at 19:30 Acetaminophen/ Hydrocodone Bitart ([place] (5/325)) 1 tab Q6H PRN PO MODERATE PAIN LEVEL 4-6; Start 09/04/18 at 19:30 Docusate Sodium (Colace) 100 mg Q12H PRN PO CONSTIPATION; Start 09/04/18 at 19:30 Zolpidem Tartrate (Ambien) 5 mg QHS PRN PO SLEEP; Start 09/04/18 at 19:30 Amlodipine Besylate (Norvasc) 5 mg DAILY PO Last administered on 09/06/18at 08:30; Admin Dose 5 MG; Start 09/05/18 at 09:00 Dextrose/Sodium Chloride 1,000 ml @ 100 mls/hr Q10H IV Last administered on 09/06/18at 08:30; Admin Dose 100 MLS/HR; Start 09/05/18 at 01:30 Morphine Sulfate (morphine) 6 mg Q4H PRN PO SEVERE PAIN LEVEL 7-10; Start 09/05/18 at 14:30 YONNY TRAORE Sep 06, 2018 11:30
[2018-09-06 14:00] VITALS: BP 136/83; PULSE 88; RESP 18
--- NOTE | 2018-09-06 14:20 | NUR ---
Dr Escalante called and rescheduled surgery for tomorrow, can have clear liquids, NPO post midnight . MD talked to the patient and made aware that surgery he is rescheduled for tomorrow. Instructed to have clear liquids and NPO post midnight.
--- NOTE | 2018-09-06 14:42 | NUR ---
DR BEATTY IN PACU AND GAVE ORDER TO RESCHEDULE SURGERY TOMORROW Saturday09/07/18. PATIENT MAY HAVE CLEAR LIQUID TODAY AND NPO AFTER MIDNIGHT. AUSTIN WILLIAM MADE AWARE AND STATED SHE IS AWARE, SPOKE TO DR BEATTY EARLIER.
--- NOTE | 2018-09-06 15:00 | NUR ---
Patient has some questions regarding his insurance requests for authorization for the other procedure and Louie case fitter talked to the patient.
--- NOTE | 2018-09-06 18:30 | NUR ---
EOSS: Patient's rescheduled for lap dillan tomorrow, on clear liquid diet today, NPO post midnight, consent signed by patient. Patient updated with plan of care. No c/o pain during the shift. Ambulating around his room. Vitals stable. Needs attended.
[2018-09-06 20:09] VITALS: BP 140/85; PULSE 65; RESP 20
--- NOTE | 2018-09-06 21:06 | CONS ---
DATE OF ADMISSION: 09/04/2018 DATE OF CONSULTATION: HISTORY: The patient underwent ERCP by me yesterday and the ERCP showed evidence of choledocholithia sis. After sphincterotomy, the CBD stone was removed. Now, clinically, he appears very stable. He is not in distress. PHYSICAL EXAMINATION: The abdomen is unremarkable. LABORATORY WORKUP: WBC 7800. Chemistry: Potassium 4.0. The bilirubin is down to 4 from 7.1. CLINICAL IMPRESSION: Choledocholithiasis, status post removal of a common bile duct stone and placem ent of a common bile duct stent. PLAN: Plan at this time, proceed with laparoscopic cholecystectomy as being planned by the surgeon. Dictated By: GIANNI GHOSH MD NC/NTS Conf#: [id number] DID#: [id number] CC: YONNY TRAORE MD;*EndCC*
[2018-09-07] VITALS (22 sets, daily range): BP systolic 130–170; BP diastolic 76–101; PULSE 94–102; RESP 15–20
--- NOTE | 2018-09-07 06:09 | NUR ---
EOSS: Patient AOAX4, able to make his needs known, stable hemodynamically. Patient ambulatory ,independent in ADL. Patient currently in no distress, denies any discomfort, NPO for surgery today. Patient was able to rest well during the night. No acute events.
[2018-09-07] MEDS: DEXTROSE 5%-0.45% NACL 1,000 ML IV SCH (06:24)
[2018-09-07] MEDS ORDERED: DESFLURANE 15 MIN ONE (07:00)
[2018-09-07] MEDS ORDERED: CEFAZOLIN 1 GM INJ ONE (07:00)
[2018-09-07] MEDS ORDERED: LIDOCAINE 1% (MPF) 10 ML INJ ONE ×2 (07:21→08:28)
[2018-09-07] MEDS ORDERED: BUPIVACAINE 0.25% (MPF) 30 ML INJ ONE (07:21)
--- NOTE | 2018-09-07 07:28 | PREAC ---
Date/Time of Note Date/Time of Note DATE: 09/07/18 TIME: 07:27 Anesthesia Eval and Record Evaluation Time Pre-Procedure Interview DATE: 09/07/18 TIME: 07:27 Age 38 Sex male NPO: 8 hrs Preoperative diagnosis gall stone Planned procedure lap dillan Past Medical History Past Medical History: Includes Cardio: HTN GI: Obesity Surgery & Anesthesia Issues No known issue Meds Anticoagulation: No Beta Saleem within 24 hr: No Reason Beta Saleem not given: Pt. not on B-Saleem Reported Medications Amlodipine Besylate* (Norvasc*) 5 Mg Tablet, 5 MG PO DAILY, TAB 09/04/18 Current Medications IV Flush (NS 3 ml) 3 ml PER PROTOCOL IV ; Start 09/04/18 at 19:30 Ondansetron HCl (Zofran Inj) 4 mg Q6H PRN IV NAUSEA AND/OR VOMITING; Start 09/04/18 at 19:30 Acetaminophen (Tylenol Tab) 650 mg Q6H PRN PO PAIN LEVEL 1-3 OR FEVER Last administered on 09/06/18at 06:43; Admin Dose 650 MG; Start 09/04/18 at 19:30 Acetaminophen/ Hydrocodone Bitart ([place] (5/325)) 1 tab Q6H PRN PO MODERATE PAIN LEVEL 4-6; Start 09/04/18 at 19:30 Docusate Sodium (Colace) 100 mg Q12H PRN PO CONSTIPATION; Start 09/04/18 at 19:3 0 Zolpidem Tartrate (Ambien) 5 mg QHS PRN PO SLEEP; Start 09/04/18 at 19:30 Amlodipine Besylate (Norvasc) 5 mg DAILY PO Last administered on 09/06/18at 08:30; Admin Dose 5 MG; Start 09/05/18 at 09:00 Dextrose/Sodium Chloride 1,000 ml @ 100 mls/hr Q10H IV Last administered on 09/07/18at 06:24; Admin Dose 100 MLS/HR; Start 09/05/18 at 01:30 Morphine Sulfate (morphine) 6 mg Q4H PRN PO SEVERE PAIN LEVEL 7-10; Start 09/05/18 at 14:30 Meds reviewed: Yes Allergies Coded Allergies: No Known Allergy (Unverified , 09/04/18) Allergies Reviewed: Yes Labs/Studies Labs Reviewed: Reviewed by anesthesiologist Result Diagram: 09/06/18 0423 09/07/18 0438 Laboratory Tests 09/07/18 04:38 test: N/A Studies: ECG (sr), CXR (nl) Pre-procedure Exam Last vitals Vital Signs Date Temp Pulse Resp B/P (MAP) Pulse Ox O2 O2 Flow FiO2 Time Delivery Rate 09/06/18 98.3 65 20 140/85 98 20:09 (103) 09/06/18 Room Air 00:32 Airway: Adequate mouth opening, Adequate thyromental dist Mallampati: Mallampati II Teeth: Normal Lung: Normal Heart: Normal ASA Physical Status ASA physical status: 2 Emergency: None Planned Anesthetic General/MAC: ETT Planned Pain Management Single shot nerve block Pre-operative Attestations Prior to commencing anesthesia and surgery, the patient was re-evaluated, there was verification of: *The patient's identity *The results of appropriate recent lab work and preoperative vital signs *The above evaluation not changing prior to induction *Anesthetic plan, risk benefits, alternative and complications discussed with patient/family; questions answered; patient/family understands, accepts and wishes to proceed. MARY VILLALOBOS MD Sep 07, 2018 07:28
--- NOTE | 2018-09-07 07:30 | NUR ---
RECEIVED REPORT FROM NATALIIA STILL. PT IS CURRENTLY IN OR.
[2018-09-07] MEDS ORDERED: MIDAZOLAM 1 MG/ML 2 ML INJ ONE (07:51)
[2018-09-07] MEDS ORDERED: PROPOFOL 20 ML ONE (07:51)
[2018-09-07] MEDS ORDERED: ROPIVACAINE 0.5 % 30 ML VIAL ONE (07:52)
[2018-09-07] MEDS ORDERED: METOCLOPRAMIDE 10 MG INJ ONE (07:52)
[2018-09-07] MEDS ORDERED: hydrALAzine 20 MG INJ IV PRN (08:00)
[2018-09-07] MEDS ORDERED: LABETALOL HCL 20MG INJ IV PRN (08:00)
[2018-09-07] MEDS ORDERED: HYDROmorphONE 1 MG/5 ML IV SYRINGE IV PRN ×3 (08:00)
[2018-09-07] MEDS ORDERED: DIPHENHYDRAMINE 50 MG INJ IV PRN (08:00)
[2018-09-07] MEDS ORDERED: ONDANSETRON 4 MG INJ IV PRN (08:00)
[2018-09-07] MEDS ORDERED: MEPERIDINE 25 MG INJ IV PRN (08:00)
[2018-09-07] MEDS ORDERED: NEOSTIGMINE 3 MG/3 ML SYRINGE ONE (08:37)
[2018-09-07] MEDS ORDERED: ROCURONIUM 50 MG INJ ONE (08:37)
[2018-09-07] MEDS ORDERED: EPHEDrine 50 MG INJ ONE (08:37)
[2018-09-07] MEDS ORDERED: ONDANSETRON 4 MG INJ ONE (08:37)
[2018-09-07] MEDS ORDERED: KETOROLAC 30 MG INJ ONE (08:38)
[2018-09-07] MEDS ORDERED: HYDROmorphONE 2 MG/ML SYG ONE (08:43)
[2018-09-07] MEDS: AMLODIPINE 5 MG TAB PO SCH ×2 (09:00→11:07)
[2018-09-07] MEDS ORDERED: GLYCOPYRROLATE 1 MG INJ ONE (09:12)
--- NOTE | 2018-09-07 09:31 | NUR ---
RECEIVED FROM OR VIA JESSICA S/P MARIBELL. RADHA. DERMABOND DRESSING X4 DRY AND INTACT. IV INFUSING IN LT. AC # 20 ANGIOCATH. DENIES PAIN AT PRESENT.
[2018-09-07] MEDS: LACTATED RINGER'S 1,000 ML IV SCH ×2 (09:46→12:51)
--- NOTE | 2018-09-07 09:46 | OPR ---
Date/Time of Note Date/Time of Note DATE: 09/07/18 TIME: 09:33 Operative Report Free Text/Dictation Operative report laparoscopic cholecystectomy Procedure Date: Sep 07, 2018 Preoperative Diagnosis Cholecystitis, choledocholithiasis, cholelithiasis Postoperative Diagnosis Same Operation/Procedure Performed Laparoscopic cholecystectomy Surgeon Lei Escalante MD see signature line Tile Presser None Anesthesia Type: general Anesthesiologist: MARY VILLALOBOS MD Estimated Blood Loss: minimal Transfusion none Specimen Gallbladder and content Grafts/Implants none Tubes/Drains None Complications none Pt Condition Post Procedure: stable Disposition: PACU Indications Patient presented with jaundice, choledocholithiasis and abdominal pain. Bilirubin was elevated at 8. He underwent ERCP to clear the common bile duct with sphincterotomy 2 days ago. She was counseled to undergo laparoscopic cholecystectomy prior to discharge agreed to proceed risk benefits alternatives were discussed and he agreed to proceed with said procedure Procedure Description Patient brought to the operating placed supine position general she is administered with intubation the patient prepped draped in a sterile fashion ti meout was completed. A Veress needle was placed in left upper quadrant at Warren's point insufflation delivered to maintain pneumoperitoneum at 15 mmHg throughout the procedure a small stab incision was made just above the umbilicus and a 5 mm trocar was inserted with direct visualization with 30 femoral laparoscope the Veress needle was removed and epigastric 11 mm trocar and 2 r ight-sided 5 mm trochars were inserted next the gallbladder was quite cephalad possible eventration of the diaphragm. There were adhesions to the body neck of the gallbladder a atraumatic grasper was used to grasp the fundus of the gallbladder and carefully countertraction and hook cautery and [place] dissector the adhesions along the fundus and body of the gallbladder were taken down a second grasper was then used to elevate the Sifuentes's pouch and by blunt dissection and hydrodissection the fat surrounding the neck of the gallbladder was able to be dissected to facilitate visualization of the cystic duct cystic artery and the lymph node of Gayathri. Lymph node was controlled by 2 clips proximally 1 distally and then divided and then the cystic duct which was moderately dilated was skeletonized and 2 clips were placed on the patient's eye when the gallbladder side and divided a small accessory vessel was also controlled in similar fashion. Hook cautery was then used to score the peritoneum the gallbladder was taken off the liver bed small bleeding of the liver bed was controlled with monopolar cautery. A specimen bag was inserted through the epigastric port the gallbladder placed and this was brought through the port and through the wound. Trocar was then reinserted the operative field was inspected for hemostasis which was excellent final irrigation and aspiration until dry. A needle close port site closure device was used to close the epigastric 11 mm port and the pneumoperitoneum was allowed to escape all trochars were removed skin incisions closed with 4-0 Monocryl and Dermabond for dressing patient was explained the operative brought recovery in stable condition. Sponge needle count was correct x2. LEI ESCALANTE MD Sep 07, 2018 09:46
--- NOTE | 2018-09-07 10:14 | NUR ---
BROUGHT AT BEDSIDE
--- NOTE | 2018-09-07 10:30 | NUR ---
REPORT GIVEN TO NATALIIA CARBAJAL. TRANSPORTED TO . [facility] IN STABLE CONDITION ACCOMPANIED BY TRANSPORT. DERMABOND DRESSING REMAINS DRY AND INTACT. IV PATENT. PAIN LEVEL 10.
--- NOTE | 2018-09-07 10:50 | NUR ---
PT RECEIVED FROM PACU. A,A,OX4. NOT IN ANY ACUTE DISTRESS. DENIES ANY PAIN AT THIS TIME. THE PLAN OF CARE DISCUSSED W/ THE PT AND FAMILY AT THE BEDSIDE. CALL LIGHT IN REACH. PT ENCOURAGED TO CALL FOR ASSISTANCE. WILL CONT. MONITORING. WILL CONT. W/ THE PLAN OF CARE.
[2018-09-07] MEDS ORDERED: ACET1TAB40 PO (13:44)
--- NOTE | 2018-09-07 13:49 | PDOCDIS ---
Discharge Instructions CONDITION [id number] Patient Condition: [id number] Good HOME CARE INSTRUCTIONS: [id number] Diet Instructions: [id number] Regular ACTIVITY: [id number] Activity Restrictions: [id number] No Restrictions FOLLOW UP/APPOINTMENTS Follow-up Plan FOLLOW UP WITH YOUR PCP AND WITH DR LEI BEATTY IN 1-2 WEEKS YONNY TRAORE Sep 07, 2018 13:49
[2018-09-07] MEDS ORDERED: MAGNESIUM HYDROXIDE 30ML CUP PO ONE (16:00)
[2018-09-07] MEDS ORDERED: SENNA TAB PO ONE (16:00)
--- NOTE | 2018-09-07 17:20 | NUR ---
PT WAS DISCHARGED HOME IN STABLE CONDITION W/ ALL HIS BELONGINGS. D/C INSTRUCTIONS AND RX WERE GIVEN. PT VERBALIZED UNDERSTANDING.
--- NOTE | 2018-09-07 17:27 | DS ---
Date/Time of Note Date/Time of Note DATE: 09/07/18 TIME: 17:25 Discharge Summary Admission/Discharge Info Admit Date/Time Sep 04, 2018 at 18:38 Discharge Date/Time September 07, 2018 Discharge Diagnosis 1. Abdominal pain with jaundice secondary to choledocholithiasis Abdominal ultrasound and MRCP showed no evidence of choledocholithiasis ERCP was done due to persistent transaminitis and CBD stone was noted and removed Status post cholecystectomy Surgery and GI consultations appreciated Hepatitis panel is negative, anti-mitochondrial and anti-smooth muscle antibodies are also negative CA-19-9 is elevated but is likely a false positive, no pancreatic masses noted on MRI, AFP is normal 2. Hypertension Continue home Norvasc Patient Condition: Good Hospital Course Patient is a 38-year-old male with a history of hypertension and hemorrhoids, patient presents with 6 months of intermittent nausea and vomiting with worsening of his nausea and vomiting over the past several weeks in addition to midepigastric and left mid quadrant abdominal pain with jaundice and darkening of the urine and decreased coloration of the stool. Ultrasound abdomen and MRCP showed no evidence of choledocholithiasis the patient had persistent transaminitis and jaundice and hence ERCP was done and CBD stone was noted and removed. Patient did have a lap scopic cholecystectomy, patient was stable for DC and on day of discharge patient's vitals, labs and physical exam are stable patient has no acute complaints questions are answered. Home Meds Active Scripts Acetaminophen with Codeine (Acetaminophen-Cod #3 Tablet) 1 Each Tablet, 1 TAB PO Q6H, #40 TAB Prov:YONNY TRAORE 09/07/18 Reported Medications Amlodipine Besylate* (Norvasc*) 5 Mg Tablet, 5 MG PO DAILY, TAB 09/04/18 Follow-up Plan FOLLOW UP WITH YOUR PCP AND WITH DR LEI BEATTY IN 1-2 WEEKS Primary Care Provider Red Samson MD Time spent on discharge: > 30 minutes YONNY TRAORE Sep 07, 2018 17:27
--- NOTE | 2018-09-07 19:23 | PAC ---
Date/Time of Note Date/Time of Note DATE: 09/07/18 TIME: 19:22 Post-Anesthesia Notes Post-Anesthesia Note Last documented vital signs Vital Signs Date Temp Pulse Resp B/P (MAP) Pulse Ox O2 O2 Flow FiO2 Time Delivery Rate 09/07/18 98.0 99 18 130/82 96 Room Air 15:45 (98) Activity: WNL Respiratory function: WNL Cardiovascular function: WNL Mental status: Baseline Pain reasonably controlled: Yes Hydration appropriate: Yes Nausea/Vomiting absent: No MARY VILLALOBOS MD Sep 07, 2018 19:23
[2018-09-08] MEDS ORDERED: ENOXAPARIN 40 MG/0.4 ML SYG SC SCH (07:00)
== END 2018-09-07 17:20 | disposition home or self-care (01) | DRG 419 ==
LOC: E/R 15:07 → MS1 18:38
PROVIDERS: ADMIT Internal Medicine; ATTEND Internal Medicine
PROC: 0FBC8ZX Excision of Ampulla of Vater, Via Natural or Artificial Opening Endoscopic, Diagnostic (ICD-10-PCS; 2018-09-05)
PROC: 0FC98ZZ Extirpation of Matter from Common Bile Duct, Via Natural or Artificial Opening Endoscopic (ICD-10-PCS; principal; 2018-09-05 16:30)
PROC: 0FT44ZZ Resection of Gallbladder, Percutaneous Endoscopic Approach (ICD-10-PCS; 2018-09-07)
DX: K80.61 Calculus of gallbladder and bile duct with cholecystitis, unspecified, with obstruction (principal); I10 Essential (primary) hypertension
CPT/HCPCS: 36415; 74177; 74181; 74330; 76705; 80053; 80061; 81001; 82105; 83036; 83690; 83735; 84100; 85025; 85610; 86038; 86255; 86301; 86704; 86709; 86803; 87340; 88304; 88305; C2617; J0360; J0690; J1170; J1885; J2250; J2405; J2710; J2765; J2795; J3010; J7042; J7120; Q9967